=== PATIENT | female | born 1970 | race Caucasian/White ===

== ENCOUNTER → 2018-06-13 00:29 | Outpatient (CLI) | payer BC, SELFPAY ==
--- NOTE | 2018-06-13 08:28 | DI.REPORT_ITS ---
SYMPTOMS/DIAGNOSIS: RT FOOT PAIN X 2 WKS, ? FX, M79.342 RIGHT FOOT: Three views were obtained. No bony abnormality is seen.
== END ==
PROVIDERS: PCP Family Medicine; Visit Provider Nurse Practitioner Family
DX: M79.671 Pain in right foot (principal)
CPT/HCPCS: 73630

== ENCOUNTER 2019-03-21 01:18 | Outpatient (CLI) | payer BC, SELFPAY ==
--- NOTE | 2019-03-21 08:58 | DI.US_ITS ---
SYMPTOMS/DIAGNOSIS: RT UPPER QUAD PAIN, R10.11 ABDOMINAL ULTRASOUND: The aorta and vena cava are normal. The liver is normal. The gallbladder is intact. There are no gallstones or evidence of ductal dilatation. The pancreas is normal. The spleen is normal. The kidneys are within normal limits. There is no evidence of abdominal free fluid. SUMMARY: Normal abdominal ultrasound.
== END 2019-03-21 01:38 ==
PROVIDERS: PCP Family Medicine; Visit Provider Family Medicine
DX: R10.11 Right upper quadrant pain (principal)
CPT/HCPCS: 76700

== ENCOUNTER 2020-11-24 04:01 | Outpatient (CLI) | payer BC, SELFPAY ==
[2020-11-24 10:45] LABS: Hemoglobin A1C 5.2 % (<5.7)
[2020-11-24 11:54] LABS: Anion Gap 8.8 mmol/L (3-11); BUN 14 mg/dL (7-18); CO2 25.2 mmol/L (21.0-32.0); CREATININE 0.78 mg/dL (0.55-1.02); Calcium 8.8 mg/dL (8.5-10.1); Calculated LDL 106 mg/dL (<100); Chloride 104 mmol/L (98-107); Cholesterol 191 mg/dL (<200); Glucose 109 mg/dL (74-106); HDL Cholesterol 76 mg/dL (40-60); Potassium 4.3 mmol/L (3.5-5.1); Sodium 138 mmol/L (136-145); Triglyceride 49 mg/dL (<150)
== END 2020-11-24 04:21 ==
PROVIDERS: PCP Nurse Practitioner Family; Visit Provider Nurse Practitioner Family
DX: Z00.00 Encounter for general adult medical examination without abnormal findings (principal); Z13.220 Encounter for screening for lipoid disorders; Z13.1 Encounter for screening for diabetes mellitus
CPT/HCPCS: 36415; 80048; 80061; 83036

== ENCOUNTER 2021-03-23 03:08 | Outpatient (CLI) | payer BC, SELFPAY ==
[2021-03-23 11:57] LABS: Source Nasal/Nares
[2021-03-23 16:21] LABS: COVID-19 PCR Negative (Negative)
== END 2021-03-23 03:09 | disposition home or self-care (01) ==
LOC: LBO 03:08
PROVIDERS: PCP Nurse Practitioner Family; Visit Provider Surgery
DX: Z20.822 Contact with and (suspected) exposure to COVID-19 (principal); Z01.818 Encounter for other preprocedural examination
CPT/HCPCS: 87635

== ENCOUNTER 2021-03-25 06:15 | Day surgery (SDC) | payer BC, SELFPAY ==
[2021-03-25 06:33] VITALS: BP 109/75; PULSE 64; RESP 16; TEMP 36.5; O2SAT 97
[2021-03-25] MEDS: Lactated Ringers 1,000 ML 80 ML IV (06:46)
--- NOTE | 2021-03-25 07:04 | ANES.PREOP_ITS ---
General Info Date of Service Date Performed: 03/25/21 Height: 5 ft 7 in Weight: 63.6 kg Body Mass Index (BMI): 21.9 Surgical Procedure: Operation Date: 03/25/21 07:35 Proposed Procedures Side Surgeon bee De Jesus MD Meds Allergies and Home Medications Allergies Allergy/AdvReac Type Severity Reaction Status Date / Time No Known Allergies Allergy Verified 03/25/21 06:33 Home Medication Medication Instructions Recorded rizatriptan 5 mg tablet 5 mg PO ONCE PRN 10/05/20 bisacodyl 5 mg tablet,delayed 5 mg PO ONCE #4 tab 03/04/21 release polyethylene glycol 3350 17 238 g PO ONCE #238 g 03/04/21 gram/dose oral powder Current Visit Medications: Current Medications Generic Name Dose Route Start Last Admin Trade Name Freq PRN Reason Stop Dose Admin Ringer's Solution 1,000 mls @ 80 mls/hr 03/25/21 06:00 03/25/21 06:46 IV 04/23/21 23:59 80 mls/hr INFUSION LINDA Administration IV Miscellaneous Supplies 1 each 03/25/21 06:00 Iv Access IV 04/23/21 23:59 DIRECTED LINDA Sodium Chloride 0 ml 03/25/21 06:00 Normal Saline Flush 10 Ml Syr IV 04/23/21 23:59 PRN PRN Sodium Chloride 0 ml 03/25/21 06:00 Normal Saline 10 Ml Vial IJ 04/23/21 23:59 DIRECTED PRN Sterile Water 0 ml 03/25/21 06:00 Water,Injection,Sterile 10 Ml Vial IJ 04/23/21 23:59 DIRECTED PRN [facility] Active Problems Active Problems: Problem Status Onset Code IUD surveillance Z30.431 Hyperlipidemia E78.5 Migraine headache with aura G43.109 Medical History Medical History Hyperlipidemia IUD surveillance Copper IUD inserted 2019 at [facility] Migraine headache with aura Surgical History Surgical History S/P tonsillectomy Tobacco Smoking/Tobacco Use Status: Never Alcohol Alcohol Intake: never Substance Use Substance use: Never Substance use type: does not use Prental History History 4 Para 4 Hx # Term Pregnancies Multiple births Hx # Pregnancies Ectopic pregnancies AB induced Hx Number of Living Children 4 AB spontaneous Vital Signs and Lab Results Vital Signs Most Recent Vital Signs in EMR: Most Recent Vital Signs Temp Pulse Resp BP Pulse Ox 36.5 C 64 16 109/75 97 03/25/21 06:33 03/25/21 06:33 03/25/21 06:33 03/25/21 06:33 03/25/21 06:33 Lab Results Blood Type / Crossmatch: No Data to Display Complete Blood Count: No Data to Display Complete Metabolic Panel: No Data to Display Liver Function Panel: No Data to Display Coagulation Panel: No Data to Display Cardiac Panel: No Data to Display Arterial Blood Gas: No Data to Display Venous Blood Gas: No Data to Display Pancreas Panel: No Data to Display Thyroid Panel: No Data to Display Infectious Disease: Coronavirus (COVID-19)(PCR) Negative (Negative) 03/23/21 08:49 03/23/21 Coronavirus 2019 Source Nasal/nares 03/23/21 08:49 03/23/21 Blood Cultures: No Data to Display Toxicology Panel: No Data to Display Panel: No Data to Display Anesthesia Assessment and Plan Anesthesia History Personal History: No History of Anesthesia Complications Family History: No Family History of Anesthesia Complications Exercise Tolerance Exercise Tolerance: Metabolic Equivalents>4 Pertinent Negatives Pertinent Negatives: No Symptoms of GERD, No Major Cardiovascular Symptoms or Complaints, No Major Pulmonary Symptoms or Complaints and No History of CVA/TIA Cardiac & Pulmonary Exam Cardiac Exam: Normal S1/S2 Heart Sounds Pulmonary Exam: Clear Bilateral Breath Sounds Airway Exam Known Difficult Airway: No Mallampati Class: 2 Mouth Opening: Normal (> 3cm) Thyromental Distance: Greater than 3 cm Neck Range of Motion: Full ROM Neck Circumference: Normal Teeth Condition: Normal Dentition ASA Classification ASA Score: ASA 1 Emergency Case?: No NPO Status NPO Status: NPO Clears >2 hours, Solids >8 hours Status Status: Not Per Patient Anesthesia Plan Resuscitation Status: Full Code Anesthesia Technique: General Anesthesia Airway Planned: Natural Airway Monitors Used: Standard Monitors
[2021-03-25 07:06] VITALS: BMI 21.9
[2021-03-25 08:35] VITALS: BP 116/78; PULSE 60; RESP 16; TEMP 36.2; O2SAT 98
--- NOTE | 2021-03-25 08:35 | W.COLOREPORT ---
Date of service: 03/25/21 Time of Service: 08:35 Colonoscopy Report Date of procedure: 03/25/21 Pre-op diagnosis general: screening colonoscopy Post-op diagnosis procedure note: same Procedure: Colonoscopy Surgeon: Alessandro De Jesus Anesthesia Type: MAC Estimated blood loss (mL): 0 Pathology: none sent Complications: None Disposition: same day Indications: Screening This is a healthy 50-year-old female who presents for her first colonoscopy. She does not have any complaints or concerns. She denies family history of colon cancer and polyps. No hematochezia. Prep: Miralax/Dulcolax Retraction Time: >10 minute Findings: No polyps, or vascular abnormalities encountered Procedure Description: After informed consent was obtained, the patient was taken to the procedure room and placed in a left decubitus position. Montiors were applied and a time out was done. The patient's name, date of , procedure, allergies to medications, and metal in their body was reviewed. The patient was then sedated. Once sedated and comfortable a rectal exam was performed. External exam: small skin tag,, no external hemorrhoids. Digital exam: normal sphincter tone and no palpable masses. The colonoscope was then introduced and advanced to the cecum with some difficulty, due to tortuosity. Manual abdominal pressure was applied. The ileocecal valve and appendiceal orifice were identified. The prep was excellent. The scope was then slowly retracted for over 8 minutes into the rectum. The scope was retroflexed, and no significant internal hemorrhoids were seen. No polyps were seen throughout the colon or rectum. The scope was removed and the patient was awaken and transported back to [facility] in stable condition. The patient toleated the procedure well and there were no immediate complications. Follow up: The patient should follow up in 10 years unless she develops a change in bowel habits or new gastrointestinal complaints.
--- NOTE | 2021-03-25 08:36 | W.ANESPOSTOP ---
Postoperative Evaluation Date, Time and Location Date Performed: 03/25/21 Time Performed: 08:37 Patient Location: Day Surgery Unit Vital Signs Most Recent Imported Vital Signs: Most Recent Vital Signs Temp Pulse Resp BP Pulse Ox 36.5 C 64 16 109/75 97 03/25/21 06:33 03/25/21 06:33 03/25/21 06:33 03/25/21 06:33 03/25/21 06:33 Most Recent Manually Entered Vital Signs: Adult Blood Pressure: 116/78 Heart Rate: 67 Respirations: 16 Oxygen Saturation (%): 98 Temperature (C): 36.2 C Pain Score (0-10 Scale): 0 Pain Score Most Recent Pain Score: Most Recent Pain Score Pain Level 0 03/25/21 06:33 Assessment Mental Status: Awake (Alert & Oriented to Patient Baseline) Airway and Respiratory Function: Patent airway with normal (patient baseline) respiratory exam Cardiovascular Function: Hemodynamically Stable Hydration Status: Adequately Hydrated Nausea & Vomiting: No Nausea or Vomiting Pain: Pt. Denies Any Pain Peripheral Nerve Block: Patient did not receive a nerve block
[2021-03-25 08:37] VITALS: BP 116/78; PULSE 67; RESP 16; TEMPC 36.2; O2SAT 98
[2021-03-25 09:05] VITALS: BP 118/79; PULSE 47; RESP 16; TEMP 36.2; O2SAT 99
== END 2021-03-25 09:27 | disposition home or self-care (01) ==
LOC: SUR 06:15
PROVIDERS: PCP Nurse Practitioner Family; Visit Provider Surgery
PROC: 0DJD8ZZ Inspection of Lower Intestinal Tract, Via Natural or Artificial Opening Endoscopic (ICD-10-PCS; CPT 45378; principal; 2021-03-25 07:30)
DX: Z12.11 Encounter for screening for malignant neoplasm of colon (principal)
CPT/HCPCS: 45378; 81025; J2001

== ENCOUNTER 2021-08-01 15:11 | Emergency (ER) | payer BC, SELFPAY ==
[2021-08-01 15:18] VITALS: BP 113/70; PULSE 70; RESP 16; TEMP 36.6; O2SAT 98
[2021-08-01 15:36] LABS: Clarity Turbid (Clear)
[2021-08-01 15:43] LABS: C & S Indicated? Yes; RBC >50 HPF (0-2); WBC >50 HPF (0-5)
--- NOTE | 2021-08-01 16:00 | ED.GENADUL_ITS ---
Discharge Plan Disposition Patient Disposition: HOME Condition: Good Discharge Details Clinical Impression: UTI (urinary tract infection) Primary Care Provider: Desi Thorpe ED Provider: Rachel Downey Home Meds and New Rx's Prescriptions: New cephalexin 500 mg capsule 500 mg PO BID 7 Days Qty: 14 RF: 0 phenazopyridine [Pyridium] 200 mg tablet 200 mg PO TID PRNQty: 10 RF: 0 Continued rizatriptan 5 mg tablet 5 mg PO ONCE PRNRF: 0 Discharge Instructions Instructions: Urinary Tract Infection in Women (ED) Additional Instructions: Take antibiotic as prescribed Yogurt daily while on antibiotic Take the Pyridium as needed for pain, this will cause your urine to be orange th is will resolve once you stop this medication Should you have fever, chills, flank pain, you must return to the emergency room for reassessment Discharge Data Discharge Date/Time-TO BE ENTERED AT DEPARTURE: 08/01/21 16:12 Medical Decision Making Patient appears well, she has greater than 50 with greater than 50 red blood cells, suspect she has urinary tract infection, urine culture pending at this time No evidence of pyelonephritis, otherwise well-appearing Pyridium and Keflex applied Return patient with understanding Low suspicion for ureterolithiasis clinically Medical Records Medical records reviewed: Yes I reviewed the patient's medical records. HPI General Mode of arrival: ambulatory . Date/Time Provider Initiated Documentation: 08/01/21 15:17 . Limitations to Documentation: no limitations . Information obtained by: patient . HPI Narrative: 50-year-old female with history of hyperlipidemia presents with urinary frequency, burning, blood. She denies any flank pain or fever. She denies any chills. She denies any chest pain or shortness of breath. She has any nausea or vomiting. She denies any chance of . She denies any additional complaints at this time Related Data Home Medications Medication Instructions Recorded Confirmed rizatriptan 5 mg tablet 5 mg PO ONCE PRN 10/05/20 08/01/21 cephalexin 500 mg PO BID 7 Days #14 cap 08/01/21 phenazopyridine [Pyridium] 200 mg PO TID PRN #10 tab 08/01/21 Previous Rx's Medication Instructions Recorded cephalexin 500 mg PO BID 7 Days #14 cap 08/01/21 phenazopyridine [Pyridium] 200 mg PO TID PRN #10 tab 08/01/21 Allergies Allergy/AdvReac Type Severity Reaction Status Date / Time No Known Allergies Allergy Verified 08/01/21 15:21 General Stated Complaint: Urinary NINO: 4 Review of Systems All systems reviewed & are unremarkable except as noted in HPI and below [facility] Medical History (Updated 08/01/21 @ 16:08 by GRABIEL Jennings) Hyperlipidemia IUD surveillance Copper IUD inserted 2019 at [facility] Migraine headache with aura Surgical History (Updated 03/31/21 @ 07:50 by Desi Thorpe NP) S/P colonoscopy (03/25/21) S/P tonsillectomy Family History Mother Breast cancer 70s Father , in his 60s from bladder cancer Bladder cancer Brother , at 30 from [place] Heart disease Myocardial infarction Sister Epilepsy Daughter No problems noted. Son No problems noted. Son No problems noted. Son No problems noted. Maternal Grandfather No problems noted. Maternal Grandmother No problems noted. Paternal Grandfather No problems noted. Paternal Grandmother No problems noted. Social History Smoking/Tobacco Use Status: Never Smoking risk assessment performed?: Yes Alcohol Intake: never Drug use: Never Substance use type: does not use Household members: spouse Housing: house Communication Needs: None Pets and animals: Yes Pets and animals: dog(s) Sexually active: Yes Do you think of yourself as: straight/heterosexual Current gender identity: female What is your relationship status?: How often do you talk on the phone with friends or family?: twice per week How often do you get together with friends or relatives?: once per week How often do you attend religious or moravian services?: 4 or more times per year Do you belong to any clubs or organized social groups?: no Panel score (0-1 are the most socially isolated patients): 3 What type of physical activity do you participate in: walking Duration: 15-30 minutes/day Frequency: 5-6 times per week Kinjal/Mosque: Mosque Seatbelt use: always Helmet use: No Drive intox or ride w/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: No Do you feel safe at home: Yes Do you feel safe in your relationship?: Yes Female Reproductive History Menstrual control method: copper IUCD History History 4 Para 4 Hx # Term Pregnancies Multiple births Hx # Pregnancies Ectopic pregnancies AB induced Hx Number of Living Children 4 AB spontaneous Exam Const General: healthy appearing and comfortable GI Other: No CVA tenderness, no abdominal tenderness Neuro General: patient alert and patient oriented x3 Course Vital Signs Vital signs: Vital Signs Temperature 36.6 C 08/01/21 15:18 Pulse 70 08/01/21 15:18 Respiratory Rate 16 08/01/21 15:18 Blood Pressure 113/70 08/01/21 15:18 Pulse Oximetry 98 08/01/21 15:18 Temperature 36.6 C 08/01/21 15:18 Pulse 70 08/01/21 15:18 Respiratory Rate 16 08/01/21 15:18 Respiratory Effort 08/01/21 15:22 Blood Pressure 113/70 08/01/21 15:18 Pulse Oximetry 98 08/01/21 15:18 Oxygen Delivery Method Room Air 08/01/21 15:18 Oxygen Flow Rate 0 08/01/21 15:18 Lab/Test Results Lab/Test Results: 08/01/21 15:30 Urine - Reflex from Ua Urine Culture - Pending Laboratory Tests Range/Units 08/01/21 15:30 Urine Color (Yellow) Urine Clarity (Clear) Turbid Urine pH (5-8) Ur Specific [place] (1.005-1.025) Urine Protein (Negative) mg/dL Urine Ketones (Negative) mg/dL Urine Blood (Negative) Urine Nitrite (Negative) Urine Bilirubin (Negative) Urine Urobilinogen (Up TO 0.2) EU/dL Ur Leukocyte Esterase (Negative) Urine RBC (0-2) HPF >50 H Urine WBC (0-5) HPF >50 H Ur Epithelial Cells Not Applicable Urine Crystals Not Applicable Urine Bacteria Not Applicable Urine Mucus Not Applicable Ur Culture Indicated? Yes Urine Glucose (Negative) mg/dL
[2021-08-01] MEDS: Cephalexin 500 MG CAP, 4 CAPS/BTL PO (16:09)
[2021-08-01] MEDS: Phenazopyridine 200 MG TAB PO (16:10)
== END 2021-08-01 16:12 | disposition home or self-care (01) ==
PROVIDERS: Emergency Provider Physician Assistant; PCP Nurse Practitioner Family
DX: N39.0 Urinary tract infection, site not specified (principal); B96.20 Unspecified Escherichia coli [E. coli] as the cause of diseases classified elsewhere
CPT/HCPCS: 87077; 99283; 81003; 81015; 87086; 87186

== ENCOUNTER 2021-09-22 12:32 | Outpatient (REF) | payer BC, SELFPAY | END 2021-09-22 12:33 | disposition home or self-care (01) | LOC: LBN 12:32 | PROVIDERS: PCP Nurse Practitioner Family; Visit Provider Family Medicine | DX: N39.0 Urinary tract infection, site not specified (principal) | CPT/HCPCS: 87077; 87086; 87186 ==

== ENCOUNTER 2023-05-05 23:57 | Emergency (ER) | payer BC, SELFPAY ==
[2023-05-06] VITALS: BP 125/83; PULSE 85; RESP 16; TEMP 36.6; O2SAT 96
--- NOTE | 2023-05-06 | DI.CT_ITS ---
Exam(s) CT ABDOMEN PELVIS W EXAM: CT ABDOMEN PELVIS W CLINICAL HISTORY: possible colitis. TECHNIQUE: Imaging Protocol: Axial computed tomography images with coronal and sagittal reformatted images were created and reviewed CONTRAST MATERIAL: Intravenous: Omnipaque 350 Contrast volume:100 ml Oral: / no COMPARISON: No exams were available for comparison FINDINGS: ABDOMEN: Lung Bases: Minimal dependent changes. Liver: Normal density. No measurable mass. Gallbladder and biliary tract: No radiodense calculus or dilation. Pancreas: Normal density, no abnormal calcifications or inflammatory process. Spleen: Normal. Kidneys: Normal size, contour and axis. No radiodense stones or obstructive uropathy. No suspicious m asses seen. Adrenal glands: No masses seen. Abdominal Aorta: Abdominal portion non-dilated. Soft tissues: Unremarkable. PELVIS: Bladder: No wall thickening. No calculi.No focal mass. Bowel: Moderate quantity of stool. No obstruction. Mild dilatation of loops of small bowel, mid to distal. Proximal small bowel and stomach are unremarkable. Peritoneal cavity: Small amount of fluid in cul-de-sac. Bones: Anterior wedging of L4 vertebral body appears old. Degenerative disc changes at L5-S1. Reproductive organs: IUD. Lymph nodes: Unremarkable. Impression: Mild dilatation of loops of small bowel in the pelvis which may represent infectious or inflammatory enteritis. The colon is unremarkable. RADIATION DOSE DELIVERED: 766.75mGy.cm Total DLP DATA REPOSITORY: All CT scans at this facility are submitted to the National Radiology Data Registry (NRDR) Dose Index Registry (DIR) with the [employer] (ACR). RADIATION OPTIMIZATION: All CT scans at this facility use at least one of these dose optimization te chniques: automated exposure control; mA and/or kV adjustment per patient size (includes targeted exa ms where dose is matched to clinical indication); or iterative reconstruction.
[2023-05-06 00:21] LABS: Abs Immature Grans 0.02 10^3/uL (0.0-0.06); Absolute Basophil Count 0.02 10^3/uL (0.0-0.2); Absolute Eosinophil Count 0.18 10^3/uL (0.0-0.7); Absolute Lymphocyte Count 0.26 10^3/uL (1.2-3.4); Absolute Monocyte Count 0.54 10^3/uL (0.1-0.8); Absolute Neutrophil Count 5.15 10^3/uL (1.2-6.7); Basophils % 0.3; Eosinophils % 2.9; HCT 44.5 % (36.0-46.0); HGB 15.3 g/dL (11.2-15.7); Immature Grans % 0.3; Lymphocytes % 4.2; MCH 30.7 pg (27.0-33.0); MCHC 34.4 % (32.0-36.0); MCV 89 fL (80-95); MPV 8.5 fL (8.0-11.0); Monocytes % 8.8; Neutrophils % 83.5; Platelet Count 167 10^3/uL (130-400); RBC 4.98 10^6/uL (3.93-5.22); RDW 11.7 % (11.7-14.6); WBC 6.17 10^3/uL (4.4-10.8)
[2023-05-06 00:29] LABS: Bilirubin Moderate (Negative); Blood Large (Negative); Clarity Clear (Clear); Glucose 100 mg/dL (Negative); Ketones 15 mg/dL (Negative); Leukocyte Esterase Large (Negative); Nitrite Positive (Negative); Specific Gravity 1.015 (1.005-1.025)
--- NOTE | 2023-05-06 00:29 | W.ED.GENAD ---
Discharge Plan Disposition Patient Disposition: Home Discharge Details Clinical Impression: Enteritis, Cystitis Primary Care Provider: Desi Thorpe ED Provider: Kushal Tilley Home Meds and New Rx's Prescriptions: New cefpodoxime 200 mg tablet 200 mg PO Q12H Qty: 7 0RF Rx Instructions: must administer with a meal/food No Action sumatriptan succinate 100 mg tablet See Rx Instructions PO .COMPLEX Qty: 14 3RF Rx Instructions: take 1 tab at onset of headache; if no relief, may repeat 1 tab after at least 2 hrs; max = 2 tabs/24 hrs PO ParaGard T 380A 380 square mm intrauterine device 1 device intrauterine ONCE Rx Instructions: as a single dose Discharge Instructions Instructions: Urinary Tract Infection in Women (ED), Enteritis (ED) Discharge Data Discharge Date/Time-TO BE ENTERED AT DEPARTURE: 05/06/23 03:27 Medical Decision Making Fact that the patient's son with whom she lives has C. difficile colitis and now this patient has watery diarrhea is highly suspicious. Will obtain sample of stool. Obtain CT scan of the abdomen and pelvis. Fluid resuscitate patient. Will discuss with patient and consider empiric treatment of C. difficile colitis if the lab results do not come back in a timely manner. Will reassess after diagnostics are back. Differential Diagnosis Differential Diagnosis: C. difficile colitis/cystitis/dehydration HPI General Date/Time Provider Initiated Documentation: 05/06/23 00:03. Limitations to Documentation: no limitations. Information obtained by: patient. HPI Narrative: . Patient with no significant medical history presents with 4 days of worsening watery diarrhea. Now with crampy abdominal pain weakness myalgias and just today before presentation to the emergency department with hematuria. No previous surgical abdominal history. Her son with whom she lives was recently diagnosed with C. difficile colitis status post IV antibiotic use. This is her sick contacts. Patient initiated treatment with Pyridium for the hematuria. She denies fevers chills. She is nauseous and if she tries to take p.o. fluids she vomits. Patient herself has not initiated any antibiotic therapy. Related Data Home Medications Medication Instructions Recorded Confirmed copper 380 square mm intrauterine 1 device intrauterine ONCE 02/23/23 04/06/23 device (ParaGard T 380A) sumatriptan succinate 100 mg tablet See Rx Instructions PO .COMPLEX 04/04/23 04/06/23 #14 tabs cefpodoxime 200 mg tablet 200 mg PO Q12H #7 tabs 05/06/23 Previous Rx's Medication Instructions Recorded sumatriptan succinate 100 mg tablet See Rx Instructions PO .COMPLEX 04/04/23 #14 tabs cefpodoxime 200 mg tablet 200 mg PO Q12H #7 tabs 05/06/23 Allergies Allergy/AdvReac Type Severity Reaction Status Date / Time No Known Allergies Allergy Verified 04/06/23 13:48 General Stated Complaint: Abd Prob NINO: 3 Review of Systems Narrative: CONST: Negative for fever, +body aches and chills. HENT: Negative for neck pain/stiffness, headache, congestion, sore throat, swelling. EYES: Negative for discharge/pain or vision changes. RESP: Negative for cough/hemoptysis and shortness of breath. CV: Negative chest pain, difficulty breathing, palpitations. ABD: : MUSC: Negative for muscle aches, edema. SKIN: Negative rash, lesions/sores. NEURO: Negative headache, dizziness, weakness. [facility] All Active Problems (Updated 05/06/23 @ 02:53 by Kushal Tilley MD) Enteritis (Acute) Cystitis (Acute) Migraine headache without aura (Chronic) Hyperlipidemia (Chronic) IUD surveillance (Chronic) Copper IUD [facility] [address] [facility] Varicose veins of both legs with edema (Chronic) Surgical History S/P colonoscopy (03/25/21) S/P tonsillectomy Family History Mother Breast cancer 70s Father , in his 60s from bladder cancer Bladder cancer Brother , at 30 from [facility] Heart disease Myocardial infarction Sister Epilepsy Daughter No problems noted. Son No problems noted. Son No problems noted. Son No problems noted. Maternal Grandfather No problems noted. Maternal Grandmother No problems noted. Paternal Grandfather No problems noted. Paternal Grandmother No problems noted. Social History Smoking/Tobacco Use Status: Never Smoking risk assessment performed?: Yes Alcohol Intake: never Drug use: Never Substance use type: does not use Household members: spouse Housing: house Communication Needs: None Pets and animals: Yes Pets and animals: dog(s) Sexually active: Yes Do you think of yourself as: straight/heterosexual Current gender identity: female What is your relationship status?: How often do you talk on the phone with friends or family?: twice per week How often do you get together with friends or relatives?: once per week How often do you attend adventism or adventism services?: 4 or more times per year Do you belong to any clubs or organized social groups?: no Panel score (0-1 are the most socially isolated patients): 3 What type of physical activity do you participate in: walking Duration: 15-30 minutes/day Frequency: 5-6 times per week Kinjal/Holiness: Holiness Seatbelt use: always Helmet use: No Drive intox or ride w/intox experienced truck driver: No Do you feel safe at home: Yes Do you feel safe in your relationship?: Yes Female Reproductive History Menstrual control method: copper IUCD History History 4 Para 4 Hx # Term Pregnancies Multiple births Hx # Pregnancies Ectopic pregnancies AB induced Hx Number of Living Children 4 AB spontaneous Exam Narrative Exam Narrative: GENERAL APPEARANCE NAD, activity normal for age, well developed/ well nourished, no cyanosis, pallor, or diaphoresis. EYES lids/conjunctiva normal. EARS/NOSE/THROAT Mucous membranes moist, nares normal, lips/teeth normal uvula midline without oral pharyngeal erythema, exudate or swelling No lymphangitis/lymphedema. HEAD/NECK normocephalic atraumatic, no facial trauma, neck is supple. RESPIRATORY respiratory effort normal, speaks in full sentences, no tripod position, no accessory muscle use. Lungs clear to auscultation without rhonchi, wheezes, rales CARDIAC Regular rate and rhythm, no edema. ABDOMINAL minimal bilateral lower quadrant tenderness no rebound no guarding. MUSCLES/EXTREMITIES No abnormal range of motion, no swelling. SKIN Warm, pink and dry. No rashes, dermatoses, petechiae or lesions. NEUROLOGICAL Speech is clear and appropriate. Normal level of consciousness. Gait and coordination are normal. 5/5 strength in all extremities. PSYCH Normal mood and affect. Judgement/competence is appropriate Course Reevaluation(s) Time: 02:51 Reevaluation: CT scan shows evidence of enteritis but no colitis. Not entirely clear why this patient would have both a cystitis and an enteritis. Urinalysis is being sent off for culture we will discharge patient on cephalosporin. She cannot produce a C. difficile sample we will send her home with a laboratory slip to produce a sample at home and she will bring it back. Over the weekend she understands that we will be monitoring here in the emergency department and if she needs to back today over the emergency department for repeat evaluation she can at any time. From their primary care doctor early next week we will have to reexamine the patient and see how she is recovering from her illness. No fevers no chills pain is minimal not hypotensive not tachycardic and tolerating p.o. fluids. Stable for outpatient management Vital Signs Vital signs: Vital Signs Temperature 36.6 C 05/06/23 00:00 Pulse 85 05/06/23 00:00 Respiratory Rate 16 05/06/23 00:00 Blood Pressure 125/83 05/06/23 00:00 Pulse Oximetry 96 05/06/23 00:00 Temperature 36.6 C 05/06/23 00:00 Temperature Source Temporal Artery Scan 05/06/23 00:00 Pulse 85 05/06/23 00:00 Respiratory Rate 16 05/06/23 00:00 Respiratory Effort Normal, Non-Labored 05/06/23 00:22 Blood Pressure 125/83 05/06/23 00:00 Blood Pressure Position Sitting 05/06/23 00:00 Pulse Oximetry 96 05/06/23 00:00 Oxygen Delivery Method Room Air 05/06/23 00:00 Oxygen Flow Rate 0 05/06/23 00:00 Pain Level 6 05/06/23 00:00 Comment Taking Tylenol and Advil w/ last at 1730. 05/06/23 00:00 Lab/Test Results Lab/Test Results: Laboratory Tests Range/Units 05/06/23 00:10 WBC (4.4-10.8) 10^3/uL 6.17 RBC (3.93-5.22) 10^6/uL 4.98 Hgb (11.2-15.7) g/dL 15.3 Hct (36.0-46.0) % 44.5 MCV (80-95) fL 89 MCH (27.0-33.0) pg 30.7 MCHC (32.0-36.0) % 34.4 RDW (11.7-14.6) % 11.7 Plt Count (130-400) 10^3/uL 167 MPV (8.0-11.0) fL 8.5 Immature Gran % 0.3 Neutrophils % 83.5 Lymphocytes % 4.2 Monocytes % 8.8 Eosinophils % 2.9 Basophils % 0.3 Nucleated RBC % (0.0-0.3) % 0.0 Absolute Neutrophils (1.2-6.7) 10^3/uL 5.15 Absolute Lymphocytes (1.2-3.4) 10^3/uL 0.26 L Absolute Monocytes (0.1-0.8) 10^3/uL 0.54 Absolute Eosinophils (0.0-0.7) 10^3/uL 0.18 Absolute Basophils (0.0-0.2) 10^3/uL 0.02
[2023-05-06 00:30] LABS: Bacteria Moderate HPF (Negative); C & S Indicated? Yes; Casts Negative LPF (Negative); Crystals Negative HPF (Negative); Epithelial Cells Few HPF (Negative); Mucus Negative (Negative)
[2023-05-06 00:45] LABS: ALT 92 U/L (14-59); AST 99 U/L (15-37); Albumin 3.9 g/dL (3.4-5.0); Alkaline Phosphatase 98 U/L (46-116); Anion Gap 10.3 mmol/L (3-11); BUN 14 mg/dL (7-18); Bilirubin, Total 0.6 mg/dL (0.2-1.0); CO2 26.7 mmol/L (21.0-32.0); CREATININE 0.8 mg/dL (0.55-1.02); Calcium 8.9 mg/dL (8.5-10.1); Chloride 103 mmol/L (98-107); Glucose 147 mg/dL (74-106); Magnesium 1.5 mg/dL (1.8-2.4); Potassium 3.6 mmol/L (3.5-5.1); Sodium 140 mmol/L (136-145); Total Protein 7.4 g/dL (6.4-8.2)
[2023-05-06] MEDS: Omnipaque 350 MG/ML 100 ML BTL IJ (01:19)
[2023-05-06] MEDS: Normal Saline - Diluent 50 ML VIAL IJ (01:19)
[2023-05-06] MEDS: Normal Saline 1,000 ML 1000 ML IV (01:24)
[2023-05-06] MEDS: MAGNESIUM SULFATE 2 GM/50 ML BAG IVPB (01:42)
[2023-05-06] MEDS: cefTRIAXone 1 GM VIAL IV (01:43)
--- NOTE | 2023-05-06 02:35 | DI.VRAD_ITS ---
PROCEDURE INFORMATION: Exam: CT Abdomen And Pelvis With Contrast Exam date and time: 05/06/2023 1:21 AM Age: 52 years old Clinical indication: Other: Possible colitis, diarrhea TECHNIQUE: Imaging protocol: Computed tomography of the abdomen and pelvis with contrast. Radiation optimization: All CT scans at this facility use at least one of these dose optimization techniques: automated exposure control; mA and/or kV adjustment per patient size (includes targeted exams where dose is matched to clinical indication); or iterative reconstruction. Contrast material: OMNI 350; Contrast volume: 100 ml; Contrast route: INTRAVENOUS (IV); COMPARISON: US ABDOMEN 03/21/2019 9:29 AM FINDINGS: Liver: Normal. No mass. Gallbladder and bile ducts: Normal. No calcified stones. No ductal dilation. Pancreas: Normal. No ductal dilation. Spleen: Normal. No splenomegaly. Adrenal glands: Normal. No mass. Kidneys and ureters: Normal. No hydronephrosis. Stomach and bowel: No dilated loops of small bowel or colonic dilatation. There is extensive wall thickening in mid in distal small bowel with hyperenhancement of wall and mucosa. Appendix: No evidence of appendicitis. Intraperitoneal space: No free intraperitoneal gas. Small pelvic ascites. 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 Varicose left gonadal vein. Lymph nodes: Unremarkable. No enlarged lymph nodes. Urinary bladder: Unremarkable as visualized. Reproductive: IUD appears satisfactorily positioned in anteverted uterus. Bones/joints: Age-indeterminate L4 vertebral body compression fracture. No aortic aneurysm or dissection. Soft tissues: Unremarkable. IMPRESSION: 1. CT findings consistent with the presence of mid and distal enteritis which could have an inflammatory or infectious etiology. 2. Age-indeterminate L4 vertebral body compression fracture. Correlate clinically as to acuity. 3. 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 4. Nonspecific small pelvic ascites. Dictated and Authenticated by: Geo Huynh MD. Ordering:NOE Fatima MD
[2023-05-06 02:58] VITALS: BP 110/73; PULSE 80; RESP 18; TEMP 37.2; O2SAT 96
[2023-05-06] MEDS: Ondansetron O.D.T. 4 MG TABEF, 3 TABS/BTL 12 MG (03:15)
--- NOTE | 2023-05-06 03:16 | NUR.NOTE ---
Pt attempted to provide stool sample and was unsuccessful. Pt sent home with supplies and lab order. She verb understanding of lab process.
--- NOTE | 2023-05-08 10:00 | NUR.NOTE ---
Nursing Note: Accessed pt chart to get the discharge diagnosis for lab.
== END 2023-05-06 03:27 | disposition home or self-care (01) ==
PROVIDERS: Emergency Provider Emergency Medicine; PCP Nurse Practitioner Family
DX: K52.9 Noninfective gastroenteritis and colitis, unspecified; N30.91 Cystitis, unspecified with hematuria
CPT/HCPCS: 80053; 96365; 96366; 96375; 99285; 74177; 81003; 81015; 83735; 85025; 87086; 99284; J0696; J3490

== ENCOUNTER 2023-05-08 13:28 | Outpatient (REF) | payer BC, SELFPAY ==
[2023-05-08 21:08] LABS: Hemoglobin A1C 5.3 % (<5.7)
[2023-05-08 21:16] LABS: TSH 2.76 uIU/mL (0.36-3.74)
== END 2023-05-08 13:29 | disposition home or self-care (01) ==
LOC: LBN 13:28
PROVIDERS: PCP Nurse Practitioner Family; Visit Provider Emergency Medicine
DX: R79.89 Other specified abnormal findings of blood chemistry (principal); K52.9 Noninfective gastroenteritis and colitis, unspecified; E78.5 Hyperlipidemia, unspecified; R73.09 Other abnormal glucose
CPT/HCPCS: 87493; 83036; 84443

== ENCOUNTER 2023-05-09 09:54 | Outpatient (REF) | payer BC, SELFPAY ==
[2023-05-10 11:18] LABS: Campylobacter PCR Negative (Negative); Salmonella PCR Negative (Negative); Shiga Toxin PCR Negative (Negative); Shigella/Enteroinvasive Ecoli Negative (Negative)
== END 2023-05-09 09:55 | disposition home or self-care (01) ==
LOC: LBN 09:54
PROVIDERS: PCP Nurse Practitioner Family; Visit Provider Nurse Practitioner Family
DX: K52.9 Noninfective gastroenteritis and colitis, unspecified (principal)
CPT/HCPCS: 87329; 87493; 87505

== ENCOUNTER 2024-05-03 03:09 | Outpatient (CLI) | payer BC, SELFPAY ==
[2024-05-03 16:28] LABS: ALT 63 U/L (14-59); AST 23 U/L (15-37); Albumin 4.3 g/dL (3.4-5.0); Alkaline Phosphatase 70 U/L (46-116); Anion Gap 9.6 mmol/L (3-11); BUN 18 mg/dL (7-18); Bilirubin, Total 0.68 mg/dL (0.2-1.0); CO2 26.4 mmol/L (21.0-32.0); CREATININE 0.7 mg/dL (0.55-1.02); Calcium 9.3 mg/dL (8.5-10.1); Calculated LDL 100 mg/dL (<100); Chloride 105 mmol/L (98-107); Cholesterol 187 mg/dL (<200); Estimated GFR 102.07 (mL/min/1.73m2); Glucose 94 mg/dL (74-106); HDL Cholesterol 78 mg/dL (40-60); Magnesium 2.2 mg/dL (1.8-2.4); Potassium 3.8 mmol/L (3.5-5.1); Sodium 141 mmol/L (136-145); Total Protein 7.4 g/dL (6.4-8.2); Triglyceride 47 mg/dL (<150)
[2024-05-06 09:38] LABS: Hepatitis C Ab w Rflx HCV PCR Negative (Negative)
[2024-05-06 09:59] LABS: HIV-1/2 Ag & Ab Screen Negative (Negative)
[2024-05-06 10:42] LABS: HBs Antibody, Quant <3.1 mIU/mL (See Note); Hep B Surface Ab Negative (See Note); Hepatitis B Core Antibody Negative (Negative); Hepatitis B Surface Antigen Negative (Negative)
== END 2024-05-03 03:10 | disposition home or self-care (01) ==
LOC: LBO 03:09
PROVIDERS: PCP Nurse Practitioner Family; Visit Provider Nurse Practitioner Family
DX: Z00.00 Encounter for general adult medical examination without abnormal findings (principal); Z11.59 Encounter for screening for other viral diseases; E83.42 Hypomagnesemia; Z11.4 Encounter for screening for human immunodeficiency virus [HIV]
CPT/HCPCS: 36415; 80053; 80061; 86704; 86706; 86803; 87340; 87389; 83735

== ENCOUNTER 2024-08-28 13:32 | Outpatient (CLI) | payer BC, SELFPAY ==
--- NOTE | 2024-08-28 12:45 | DI.RAD_ITS ---
Exam(s) XR THORACIC SPINE COMPLETE EXAM: XR THORACIC SPINE COMPLETE CLINICAL HISTORY: R53.1 Weakness, left side weak x 6 m. TECHNIQUE: 2D digital imaging was performed. COMPARISON: No exams were available for comparison FINDINGS: Two views-AP and lateral No evidence of fracture or listhesis. No scoliosis. No prominent disc space narrowing. No abnormal widening of the paraspinal lines. No osseous lesions. IMPRESSION: No acute osseous findings on these two views of the thoracic spinal column. DATA REPOSITORY: RADIATION DOSE DELIVERED:
--- NOTE | 2024-08-28 12:45 | DI.RAD_ITS ---
Exam(s) XR CERVICAL SPINE COMP 4-5V EXAM: XR CERVICAL SPINE COMP 4-5V CLINICAL HISTORY: R53.1 Weakness, left side weak x 6 m. TECHNIQUE: 2D digital imaging was performed. COMPARISON: No exams were available for comparison FINDINGS: Five views. No evidence of fracture or listhesis nor offset of the spinal laminar line. There is moderate disc s pace narrowing at C5-6 level and there are small bilateral Luschka joint osteophytes also evident at this level. Other disc spaces exhibit normal height, including C6-7. Facet joints appear unremarkab le. No cervical ribs. No osseous lesions.. IMPRESSION: There is evidence of degenerative disc disease at C5-6 level as described above. DATA REPOSITORY: RADIATION DOSE DELIVERED:
== END 2024-08-28 13:52 ==
LOC: DI 13:33
PROVIDERS: PCP Nurse Practitioner Family; Visit Provider Family Medicine
DX: M50.822 Other cervical disc disorders at C5-C6 level (principal)
CPT/HCPCS: 72050; 72072

== ENCOUNTER 2024-08-28 17:30 | Outpatient (CLI) | payer BC, SELFPAY ==
[2024-08-28 16:43] LABS: ALT 53 U/L (14-59); AST 23 U/L (15-37); Albumin 4.4 g/dL (3.4-5.0); Alkaline Phosphatase 85 U/L (46-116); BUN 16 mg/dL (7-18); Bilirubin, Total 0.45 mg/dL (0.2-1.0); CREATININE 0.8 mg/dL (0.55-1.02); Calcium 9.4 mg/dL (8.5-10.1); Chloride 106 mmol/L (98-107); Estimated GFR 86.96 (mL/min/1.73m2); Glucose 89 mg/dL (74-106); Potassium 4.5 mmol/L (3.5-5.1); Sodium 144 mmol/L (136-145); Total Protein 7.3 g/dL (6.4-8.2)
== END 2024-08-28 17:31 | disposition home or self-care (01) ==
LOC: LBO 17:31
PROVIDERS: PCP Nurse Practitioner Family; Visit Provider Nurse Practitioner Family
DX: R74.01 Elevation of levels of liver transaminase levels (principal); F10.10 Alcohol abuse, uncomplicated; R53.1 Weakness; M54.2 Cervicalgia; M72.2 Plantar fascial fibromatosis; R79.89 Other specified abnormal findings of blood chemistry
CPT/HCPCS: 36415; 80053

== ENCOUNTER 2024-09-20 01:48 | Outpatient (CLI) | payer BC, SELFPAY ==
--- NOTE | 2024-09-20 06:45 | DI.MRI_ITS ---
Exam(s) MR CERVICAL SPINE WO EXAM: MR CERVICAL SPINE WO CLINICAL HISTORY: left side weakness x 6 mo,r53.1 TECHNIQUE: Multiplanar multisequence MRI of the cervical spine was performed without intravenous con trast. COMPARISON: No exams were available for comparison FINDINGS: CERVICOMEDULLARY JUNCTION: Intact with no evidence of cerebellar tonsillar ectopia. No obvious abnor mality of the odontoid process. No evidence of Chiari 1 malformation. CERVICAL SPINAL CORD: There is no abnormal signal in the cervical spinal cord and no evidence of foca l cord atrophy nor focal cord swelling. OSSEOUS:There are no cervical fractures evident. No significant osseous lesions in the cervical vert ebrae. INDIVIDUAL LEVELS: C2-3: No disc herniation nor central canal stenosis. No foraminal stenosis. No facet arthropathy. C3-4: No disc herniation nor central canal stenosis.No facet arthropathy. No foraminal stenosis. C4-5: There is mild disc space narrowing at this level. No disc herniation. Small bilateral Luschka joint osteophytes evident.Slightly more prominent on the right side. No prominent foraminal stenosi s evident at this level. No facet arthropathy. C5-6: This level exhibits mild disc space narrowing. Posteriorly there is mild annular bulging witho ut a prominent disc herniation. There are bilateral small Luschka joint-disc complexes. However, th ere does not appear to be significant foraminal stenosis on either side at this level. Also no signi ficant facet arthropathy at this level. C6-7: This level exhibits normal disc height and signal with no disc herniation or central spinal can al stenosis evident. No facet arthropathy. No foraminal stenosis. C7-T1: No disc herniation nor central canal stenosis. No facet arthropathy.No foraminal stenosis. IMPRESSION: 1. Mild findings as above described at C5-6 and C4-5 levels. 2. There is no prominent disc herniations. No central spinal canal stenosis evident. DATA REPOSITORY:
--- NOTE | 2024-09-20 06:45 | DI.MRI_ITS ---
Exam(s) MR THORACIC SPINE WO EXAM: MR THORACIC SPINE WO CLINICAL HISTORY: left side weakness x 6 mo,r53.1 TECHNIQUE: Multiplanar multisequence MRI of the thoracic spine was performed without intravenous con trast. COMPARISON: No exams were available for comparison FINDINGS: OSSEOUS: There are no acute appearing thoracic vertebral fractures. A small benign intraosseous heman gioma noted in the T6 vertebral body measuring 7 by 7 by 5 mm. There are no ominous osseous lesions in the thoracic vertebrae. THORACIC SPINAL CORD: There is no abnormal signal in the cervical spinal cord and no evidence of foca l cord atrophy nor focal cord swelling. There is no evidence of syringomyelia nor significant spinal cord dysraphism. There is no evidence of mass at the conus medullaris. The position of the conus me dullaris is at normal T12-L1 level. SIGNIFICANT INDIVIDUAL LEVEL FINDINGS: All disc spaces in the thoracic column exhibit normal height and signal. There is no evidence of dis c herniation nor central canal stenosis. No evidence of foraminal stenosis. No significant facet ar thropathy. No abnormal fluid collections. PARASPINAL TISSUES: No significant masses nor fluid collections evident. IMPRESSION: No significant findings on this MRI scan of the thoracic spinal column Small benign intraosseous hemangioma is incidentally noted in the T6 vertebral body. DATA REPOSITORY:
== END 2024-09-20 02:08 ==
LOC: DI 01:48
PROVIDERS: PCP Nurse Practitioner Family; Visit Provider Family Medicine
DX: R53.1 Weakness (principal); M50.322 Other cervical disc degeneration at C5-C6 level
CPT/HCPCS: 72141; 72146